=== PATIENT | female | born 2005 | race Caucasian/White ===

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

== ENCOUNTER 2023-09-23 10:18 | Outpatient (CLI) | payer BC, SELFPAY ==
--- NOTE | ~2023-09-23 | US_ITS ---
Pelvic ultrasound. Clinical History: Irregular menses Technique: Realtime transabdominal and transvaginal scanning of the pelvis was performed. Color flow Doppler and Doppler spectral analysis were performed. Findings: The uterus is anteverted. The endometrial stripe has a thickness of 5 mm. No focal mass is identified. The right ovary measures 2.7 x 2.0 x 2.4 cm. No significant right ovarian or adnexal mass is seen. The left ovary measures 3.1 x 3.4 x 2.2 cm. No significant left ovarian or adnexal mass is seen. There is trace free fluid in the cul de sac. Impression: Trace free fluid, otherwise unremarkable exam. Reviewed, dictated and finalized at location M. Impression: Trace free fluid, otherwise unremarkable exam.
== END 2023-09-23 10:19 | disposition home or self-care (01) ==
LOC: CHSIMG 10:20
PROVIDERS: PCP Family Medicine; Visit Provider Family Medicine
DX: N92.6 Irregular menstruation, unspecified (principal)
CPT/HCPCS: 76830; 76856

== ENCOUNTER 2024-06-26 07:30 | Outpatient (CLI) | payer BC, SELFPAY ==
--- NOTE | 2024-06-26 07:35 | ECHO_ITS ---
Patient Info Name: Farhana Irving Age: 18 years : 2005 Gender: Female Ht: 62 in Wt: 130 lbs BSA: 1.62 m2 HR: 76 bpm BP: 116 / 66 mmHg Technical Quality: Excellent Exam Date: 06/26/2024 7:53 AM Exam Location: Echo Lab Patient Status: Outpatient Admit Date: 06/26/2024 Staff Ordering Physician: Dalton Ferrari DO Stitch Bonding Machine Operator: Jaqueline Wagner RDCS Attending Provider: Dalton Ferrari DO Referring Physician: Vega ROSS; Exam Type: CA echo doppler color flow Study Info Indications I47.10 - SUPRAVENTRICULAR TACHYCARDIA, UNSPECIFIED Complete two-dimensional, color flow and Doppler transthoracic echocardiogram is performed. Strain analysis performed. Summary 1. Complete two-dimensional, color flow and Doppler transthoracic echocardiogram is performed. 2. Left ventricular chamber dimension is normal. 3. Left ventricular systolic function is normal, estimated at 60-65%. 4. The left ventricular diastolic function is normal. 5. E/e' 5 is not elevated. 6. Global longitudinal strain is normal at -21.1%. 7. There is mild mitral valve regurgitation. 8. There is mild tricuspid valve regurgitation. 9. No pulmonary hypertension, estimated pulmonary arterial systolic pressure is 31 mmHg. 10. There is trace pulmonic regurgitation. Left Ventricle E/e' 5 is not elevated. Global longitudinal strain is normal at -21.1%. Left ventricular chamber dimension is normal. Left ventricular systolic function is normal, estimated at 60-65%. The left ventricular diastolic function is normal. Right Ventricle Right ventricular systolic function is normal and with normal TAPSE 2.3 cm. Right ventricular chamber dimension is normal. Left Atria Left atrial chamber dimension is normal. Right Atria Right atrial chamber dimension is normal. Aortic Valve The aortic valve is trileaflet. There is no aortic valve stenosis. There is no aortic valve regurgitation. Pulmonic Valve There is trace pulmonic regurgitation. Mitral Valve There is no mitral valve stenosis. There is mild mitral valve regurgitation. Tricuspid Valve There is mild tricuspid valve regurgitation. No pulmonary hypertension, estimated pulmonary arterial systolic pressure is 31 mmHg. Pericardium/Pleural There is no pericardial effusion. Inferior Vena Cava Normal inferior vena cava with >50% collapse upon inspiration consistent with normal right atrial pressure, 5 mmHg. Aorta The aortic root size at the sinus of Valsalva is normal. Left Ventricular Outflow Tract Name Value Normal LVOT 2D LVOT Diameter 1.9 cm LVOT Doppler LVOT Peak Gradient 4 mmHg LVOT Mean Gradient 2 mmHg LVOT VTI 22 cm LVOT VTI/AV VTI Ratio 0.8 LVOT Stroke Volume 58 ml LVOT CO 3.6 l/min LVOT CI 2.2 l/min/m2 Pulmonic Valve Name Value Normal RVOT Doppler RVOT Peak Gradient 2 mmHg PV Doppler PV Peak Gradient 3 mmHg Mitral Valve Name Value Normal MV Doppler MV Decel Alfalfa 570 cm/s2 MV PHT 49 ms MV Area (PHT) 4.5 cm2 MV Regurgitation Doppler MR Peak Gradient 91 mmHg MV Diastolic Function MV E Peak Velocity 95 cm/s MV A Peak Velocity 28 cm/s MV E/A 3.4 MV Decel Time 167 ms Tricuspid Valve Name Value Normal TV Regurgitation Doppler TR Peak Velocity 253 cm/s TR Peak Gradient 26 mmHg Estimated PAP/RSVP RA Pressure 5 mmHg PA Systolic Pressure 31 mmHg RV Systolic Pressure 31 mmHg Aorta Name Value Normal Ascending Aorta Ao Root Diameter (MM) 2.4 cm Ao Root Diam Index (MM) 1.5 cm/m2 Aortic Valve Name Value Normal AV Doppler AV Peak Velocity 117 cm/s AV Peak Gradient 5 mmHg AV Mean Gradient 3 mmHg AV VTI 26 cm AV Area (Cont Eq VTI) 2.2 cm2 AV Area (Cont Eq Nikhil) 2.2 cm2 AV Regurgitation 2D LVOT Area 2.7 cm2 Ventricles Name Value Normal LV Dimensions 2D/MM IVS Diastolic Thickness (2D) 0.4 cm IVS Diastole Thickness (MM) 0.5 cm LVID Diastole (2D) 4.6 cm LVID Diastole (MM) 4.8 cm LVIW Diastolic Thickness (2D) 0.8 cm LVIW Diastolic Thickness (MM) 0.7 cm LVID Systole (2D) 2.9 cm LVID Systole (MM) 3.1 cm LVOT Diameter 1.9 cm LV Mass (2D Cubed) 89.21 g LV Mass Index (2D Cubed) 55 g/m2 Relative Wall Thickness (2D) 0.37 LV Mass (MM Cubed) 88.45 g LV Mass Index (MM Cubed) 55 g/m2 Relative Wall Thickness (MM) 0.29 LV Fractional Shortening/Ejection Fraction 2D/MM LV Fractional Shortening (2D) 38 % LV Fractional Shortening (MM) 35 % LV EF (MM Teicholz) 65 % LV EF (2D Teicholz) 68 % LV Diastolic Volume (4C MOD) 68 ml LV EF (4C MOD) 58 % LV Diastolic Volume (2C MOD) 51 ml LV EF (2C MOD) 64 % LV Diastolic Volume (BP MOD) 59 ml LV Diastolic Volume Index (BP MOD) 37 ml/m2 LV Systolic Volume (BP MOD) 24 ml LV Systolic Volume Index (BP MOD) 15 ml/m2 LV EF (BP MOD) 60 % LV Diastolic Length (4C) 7.8 cm LV Systolic Length (4C) 5.9 cm LV Stroke Volume (4C MOD) 40 ml Atria Name Value Normal LA Dimensions LA Dimension (MM) 3.1 cm LA Volume (4C A-L) 38 ml LA Volume (BP A-L) 39 ml RA Dimensions RA Area (4C) 12.5 cm2 EchoPAC Name Value Normal AutoEF HR_2Ch_Q ([id number]) 62 bpm LVCO_2Ch_Q (Nwhk3BPQ) 3.1 l/min LVEF_2Ch_Q (Ozce9MNS) 65 % LVLd_2Ch_Q (Tzwf3OYR) 7.9 cm LVLs_2Ch_Q (Mxhc8AVJ) 6.2 cm LVSV_2Ch_Q (Udjz7PFP) 51 ml LVVED_2Ch_Q (Mpws3CMF) 78 ml LVVES_2Ch_Q (Kywc8QBK) 27 ml TIMOTHY AA peak sys SL (AWMA) 23.8 % AAS peak sys SL (AWMA) 25.9 % AI peak sys SL (AWMA) 29.1 % AL peak sys SL (AWMA) 15.4 % AP peak sys SL (AWMA) 26.7 % peak sys SL (AWMA) 26.3 % AVC (AWMA) 384 ms BA peak sys SL (AWMA) 19.2 % BAS peak sys SL (AWMA) 16.9 % BI peak sys SL (AWMA) 17.5 % BL peak sys SL (AWMA) 22.4 % BP peak sys SL (AWMA) 18.4 % BS peak sys SL (AWMA) 8.4 % G peak SL(A2C) (AWMA) 22.1 % G peak SL(A4C) (AWMA) 19.3 % G peak SL(APLAX) (AWMA) 21.9 % G peak SL(Avg) (AWMA) 21.1 % MA peak sys SL (AWMA) 21.1 % MAS peak sys SL (AWMA) 25.7 % IA peak sys SL (AWMA) 25.5 % ML peak sys SL (AWMA) 19.9 % MP peak sys SL (AWMA) 21.4 % MS peak sys SL (AWMA) 22.3 % Report Signatures
== END 2024-06-26 07:31 | disposition home or self-care (01) ==
PROVIDERS: PCP Family Medicine; Visit Provider Internal Medicine Cardiovascular Disease
DX: I47.10 Supraventricular tachycardia, unspecified (principal); I36.1 Nonrheumatic tricuspid (valve) insufficiency; I34.0 Nonrheumatic mitral (valve) insufficiency
CPT/HCPCS: 93306

== ENCOUNTER 2025-05-16 13:40 | Outpatient (CLI) | payer BC, SELFPAY ==
--- NOTE | ~2025-05-16 | US_ITS ---
EXAMINATION: US pelvic complete w TV INDICATION: Irregular menses Comparison:No prior studies for comparison. TECHNIQUE: Multiple transabdominal and endovaginal sonographic images of the pelvis performed. FINDINGS: The uterus measures 7.6 x 4.2 x 4.2 cm. The endometrial complex measures 6 mm. The right ovary measures 3.4 x 2.3 x 1.6 cm and the left ovary measures 3 x 2.3 x 1.9 cm. There is a 2.2 cm simple cyst of the right ovary. There is a 3.7 cm simple cyst of the left ovary. There are small follicles in each ovary. Normal doppler signal in both ovaries. There is free fluid in the pelvis. There are no abnormal masses seen on either side. IMPRESSION: 1. Bilateral simple cyst of the ovaries, largest on the left measuring 3.7 cm. Reviewed, dictated and finalized at location O. RUCTOR ADJUNCT SURGICAL TECHNICIAN
--- OUTSIDE RECORDS SUMMARY | 2025-05-16 15:15 | XMS_ITS | Encounter Summary ---
Author Organization [facility] Address [address] [place] [address] Phone Care Team Providers Care Senior Construction Project Manager Name Role Phone Tigre Lee MD Primary Care Provide r Encounter Details Date Type Department Care Team (Late st Contact Info) Description 05/16/2025 3:15 PM FLORAL ARRANGER Office Visit [facility] Medicine Cardiology [address] [facility] Advanced Medicine 8th [place] [address] [place] [phone] Gertrudis Pierce, ABE TEACHER [address] [facility] [address] [place], [place] [id number] POTS (postural orthostatic tachycardia syndrome) (Primary Dx) Social History Tobacco Use Types Packs/Day Years Used Date Smoking Tobacco: Never Comments Unknown Sex and Gender Information Value Date Recorded Sex Assigned at Not on file Legal Sex Female 4:26 PM CDT Gender Identity Not on file Sexual Orientation Not on file documented as of this encounter Last Filed Vital Signs Vital Sign Reading Time Taken Comments Blood Pressure 134/86 05/16/2025 3:33 PM FLORAL ARRANGER Pulse 98 05/16/2025 3:33 PM FLORAL ARRANGER Temperature - - Respiratory Rate - - Oxygen Saturation 97% 05/16/2025 3:33 PM FLORAL ARRANGER Inhaled Oxygen Concentration - - Weight 67 kg (147 lb 12.8 oz) 05/16/2025 3:33 PM FLORAL ARRANGER Height 157.5 cm (5' 2) 05/16/2025 3:33 PM FLORAL ARRANGER Body Mass Index 27.03 05/16/2025 3:33 PM FLORAL ARRANGER documented in this encounter Functional Status documented as of this encounter Plan of Treatment Not on file documented as of this encounter Procedures Procedure Name Priority Date/Time Associated Diagnosis Comments ECG 12-LEAD Routine 05/16/2025 3:36 PM FLORAL ARRANGER POTS (postural orthostatic tachycardia syndrome) documented in this encounter Results * ECG 12 lead (05/16/2025 3:36 PM FLORAL ARRANGER) Gertrudis Pierce ABE TEACHER ECG ORDERABLES Final Re sult documented in this encounter Visit Diagnoses Diagnosis POTS (postural orthostatic tachycardia syndrome)- Primary Unspecified tachycardia documented in this encounter Care Teams Senior Construction Project Manager Relationship Specialty Start Date End Date Tigre Lee MD [address] [place] [address] PCP - General Family Medicine 02/17/24 documented as of this encounter
--- OUTSIDE RECORDS SUMMARY | 2025-05-16 20:13 | XMS_ITS | Encounter Summary ---
Author Organization [facility] Address [address] [facility] [address] [place] [address] Phone Care Team Providers Care Statement Request Clerk Name Role Phone Tigre Lee MD Primary Care Provide r Encounter Details Date Type Department Care Team (Late st Contact Info) Description 04/22/2025 Telephone [facility] Medicine Cardiology [facility] Advanced Medicine 8th [place] [address] [place] [address] Nurys Page MD [address] [facility] [place] [phone] [place] [address] Social History Tobacco Use Types Packs/Day Years Used Date Smoking Tobacco: Never Comments Unknown Sex and Gender Information Value Date Recorded Sex Assigned at Not on file Legal Sex Female 4:26 PM CDT Gender Identity Not on file Sexual Orientation Not on file documented as of this encounter Miscellaneous Notes * Telephone Encounter - Melissa Anderson - 04/22/2025 10:38 AM CDT Camilo FORTE Scheduling Pt is scheduled on 05/27 and was wondering if 05/17 was available? documented in this encounter Plan of Treatment Not on file documented as of this encounter Visit Diagnoses Not on filedocumented in this encounter Care Teams Statement Request Clerk Relationship Specialty Start Date End Date Tigre Lee MD [address] [place] [address] PCP - General Family Medicine 02/17/24 documented as of this encounter
--- OUTSIDE RECORDS SUMMARY | 2025-05-16 20:13 | XMS_ITS | Clinical Summary ---
Author Organization [facility] Address [address] [place] [address] Care Team Providers Care Direct Support Worker Name Role Phone Tigre Lee MD Primary Care Provide r Allergies No known active allergies Medications sertraline (ZOLOFT) 25 mg tablet Take 1 tablet (25 mg total) by mouth daily Active sertraline (ZOLOFT) 50 mg tablet Take 1 tablet (50 mg total) by mouth daily Active spironolactone (ALDACTONE) 25 mg tablet Take 1 tablet (25 mg total) by mouth daily Active metoprolol XL (TOPROL-XL) 25 mg extended release tablet TAKE ONE TABLET BY MOUTH DAILY 30 tablet 3 10/16/2024 Active Active Problems No known active problems Encounters Date Type Department Care Team Description 05/16/2025 3:15 PM SENIOR LITIGATION PARALEGAL Office Visit [facility] Medicine Cardiology [facility] 8th [place] [address] [place] [address] Gertrudis Pierce NP POTS (postural orthostatic tachycardia syndrome) (Primary Dx) 04/22/2025 Telephone [facility] Medicine Cardiology [facility] [address] [place] [address] [place] [phone] Nurys Page MD 03/21/2025 Telephone [facility] Medicine Cardiology [address] [facility] 8th [place] [address] [place] [phone] Nurys Page MD from Last 3 Months Social History Tobacco Use Types Packs/Day Years Used Date Smoking Tobacco: Never Tobacco Cessation:Counseling Given: Not Answered Comments Unknown Sex and Gender Information Value Date Recorded Sex Assigned at Not on file Legal Sex Female 4:26 PM CDT Gender Identity Not on file Sexual Orientation Not on file Last Filed Vital Signs Vital Sign Reading Time Taken Comments Blood Pressure 134/86 05/16/2025 3:33 PM SENIOR LITIGATION PARALEGAL Pulse 98 05/16/2025 3:33 PM SENIOR LITIGATION PARALEGAL Temperature - - Respiratory Rate - - Oxygen Saturation 97% 05/16/2025 3:33 PM SENIOR LITIGATION PARALEGAL Inhaled Oxygen Concentration - - Weight 67 kg (147 lb 12.8 oz) 05/16/2025 3:33 PM SENIOR LITIGATION PARALEGAL Height 157.5 cm (5' 2) 05/16/2025 3:33 PM SENIOR LITIGATION PARALEGAL Body Mass Index 27.03 05/16/2025 3:33 PM SENIOR LITIGATION PARALEGAL Plan of Treatment Health Maintenance Due Date Last Done Comments Cervical Cancer Screening 2005 Depression Screening 2005 Hepatitis C Screening 2005 Meningococcal B Vaccine (1 o f 2 - Standard) 2019 Regular Well Visit/Exam 18-64 11/25/2021 DTaP/Tdap/Td Vaccine (7 - Td or Tdap) 12/03/2024 12/03/2014, 01/03/2009, 06/07/2005, Additional history exists Influenza Vaccine (#1) 2025 04/15/2010, 2004 Hepatitis B Screening Completed 06/01/2004 , 03/31/2004, 01/28/2004, Additional history exists Pneumococcal vaccine <65 Completed 005, 06/01/2004, 03/31/2004, Additional history exists Varicella Vaccines Completed 01/03/2009, 03/11/2005 HPV Vaccines Completed 09/28/2017, 07/2014, 12/03/2014 Meningococcal Vaccine Completed 05/04/2021, 015 Procedures Procedure Name Priority Date/Time Associated Diagnosis Comments ECG 12-LEAD Routine 05/16/2025 3:36 PM SENIOR LITIGATION PARALEGAL POTS (postural orthostatic tachycardia syndrome) from Last 3 Months Results * ECG 12 lead (05/16/2025 3:36 PM SENIOR LITIGATION PARALEGAL) us Gertrudis Pierce SCIENTIFIC HELPER ECG ORDERABLES Final Re sult from Last 3 Months Insurance ANTHEM ACCESS CHOICE Care Teams Direct Support Worker Relationship Specialty Start Date End Date Tigre Lee MD [address] [place] [address] PCP - General Family Medicine 02/17/24
== END 2025-05-16 13:41 | disposition home or self-care (01) ==
LOC: CHSIMG 13:43
PROVIDERS: PCP Family Medicine
DX: R10.20 Pelvic and perineal pain unspecified side (principal); N83.292 Other ovarian cyst, left side; N83.291 Other ovarian cyst, right side
CPT/HCPCS: 76830; 76856

== ENCOUNTER 2025-06-28 13:41 | Outpatient (CLI) | payer BC, SELFPAY ==
--- NOTE | ~2025-06-28 | US_ITS ---
EXAMINATION: US pelvic complete w TV INDICATION: Follow-up ovarian cysts Comparison:Ultrasound dated 05/16/2025 and 09/23/2023 TECHNIQUE: Multiple endovaginal sonographic images of the pelvis performed. FINDINGS: The uterus measures 7 x 4.8 x 3.5 cm. Trace fluid in the cervix. The endometrial complex measures 6 mm. The right ovary measures 3 x 3 x 1.3 cm and the left ovary measures 3.8 x 3 x 2.5 cm. There is a benign-appearing simple cyst of the left ovary measuring 3.3 cm. There are small follicles in each ovary. Normal doppler signal in both ovaries. There is no free fluid in the pelvis. There are no abnormal masses seen on either side. IMPRESSION: 1. Benign-appearing 3.3 cm left ovarian cyst. Reviewed, dictated and finalized at location O. TS INSTRUCTOR
--- OUTSIDE RECORDS SUMMARY | 2025-06-28 13:46 | XMS_ITS | Clinical Summary ---
Author Organization [facility] Address [address] [place] [address] Care Team Providers Care Compensation Manager Name Role Phone Tigre Lee MD [...] Encounters Date Type Department Care Team Description 05/21/2025 Results Follow-Up [facility] Medicine Cardiology [address] [place] [address] 8th [place] [address] [place] [phone] Gertrudis Pierce NP ECG 12 lead 05/16/2025 3:15 PM TOWNSHIP CLERK Office Visit [facility] Cardiology [address] [place] [address] [place] [address] [place] [phone] Gertrudis Pierce NP POTS (postural orthostatic tachycardia syndrome) (Primary Dx) 04/22/2025 Telephone [facility] Medicine Cardiology [address] [place] [address] 8th [place] [address] [place] [phone] Nurys Page MD from Last 3 Months [...] Comments Blood Pressure 134/86 05/16/2025 3:33 PM TOWNSHIP CLERK Pulse 98 05/16/2025 3:33 PM TOWNSHIP CLERK Temperature - - Respiratory Rate - - Oxygen Saturation 97% 05/16/2025 3:33 PM TOWNSHIP CLERK Inhaled Oxygen Concentration - - Weight 67 kg (147 lb 12.8 oz) 05/16/2025 3:33 PM TOWNSHIP CLERK Height 157.5 cm (5' 2) 05/16/2025 3:33 PM TOWNSHIP CLERK Body Mass Index 27.03 05/16/2025 3:33 PM TOWNSHIP CLERK Plan of Treatment Health Maintenance Due Date [...] Comments ECG 12-LEAD Routine 05/16/2025 3:36 PM TOWNSHIP CLERK POTS (postural orthostatic tachycardia syndrome) from Last 3 Months Results * ECG 12 lead (05/16/2025 3:36 PM TOWNSHIP CLERK) us Gertrudis Pierce PROCUREMENT INTERN ECG ORDERABLES Edited R esult - Final from Last 3 Months Insurance ANTHEM ACCESS CHOICE Care Teams Compensation Manager Relationship Specialty Start Date End Date Tigre Lee MD [address] [place] [address] PCP - General Family Medicine 02/17/24
--- OUTSIDE RECORDS SUMMARY | 2025-06-28 13:46 | XMS_ITS | Encounter Summary ---
Author Organization [facility] Address [address] [place] [address] Phone Care Team Providers Care Digital Account Director Name Role Phone Tigre Lee MD Primary Care Provide r Encounter Details Date Type Department Care Team (Late st Contact Info) Description 05/21/2025 Results Follow-Up [facility] Medicine Cardiology [address] [facility] Advanced Medicine 8th [place] [address] [place] [address] Gertrudis Pierce, JADIEL [address] [facility] [address] [place] [address] ECG 12 lead Social History Tobacco Use Types Packs/Day Years Used Date Smoking Tobacco: Never Comments Unknown Sex and Gender Information Value Date Recorded Sex Assigned at Not on file Legal Sex Female 4:26 PM CDT Gender Identity Not on file Sexual Orientation Not on file documented as of this encounter Plan of Treatment Not on file documented as of this encounter Visit Diagnoses Not on filedocumented in this encounter Care Teams Digital Account Director Relationship Specialty Start Date End Date Tigre Lee MD [address] [place] [address] PCP - General Family Medicine 02/17/24 documented as of this encounter
== END 2025-06-28 13:42 | disposition home or self-care (01) ==
PROVIDERS: PCP Family Medicine; Visit Provider Obstetrics & Gynecology Gynecology
DX: N83.201 Unspecified ovarian cyst, right side (principal); N83.202 Unspecified ovarian cyst, left side
CPT/HCPCS: 76830; 76856